=== PATIENT | female | born 1985 | race Caucasian/White ===

== ENCOUNTER 2017-08-05 12:22 | Emergency (ER) | payer OTHER ==
[2017-08-05 13:27] VITALS: BP 106/61
--- NOTE | 2017-08-05 13:57 | UC ---
Ear Complaint HPI - HPI Summary HPI Summary: Pt present to the with with progressive right ear pain, head congestion, and cough x 3 weeks. Pt denies fevers chills. Little relief with OTC meds. No cp, sob. + fatigue. No ear drainage Pt's medications reviewed this visit - History of Current Complaint Chief Complaint: UCRespiratory Stated Complaint: UPPER RESPIRATORY Time Seen by Provider: 08/05/17 13:26 Hx Obtained From: Patient Hx Last Menstrual Period: 07/27/17 ?: No Onset/Duration: Gradual Onset Severity Initially: Mild Severity Currently: Moderate - Allergies/Home Medications Allergies/Adverse Reactions: Allergies Allergy/AdvReac Type Severity Reaction Status Date / Time No Known Allergies Allergy Verified 08/05/17 13:27 PMH/Surg Hx/FS Hx/Imm Hx Previously Healthy: Yes - Surgical History Surgical History: Yes Surgery Procedure, Year, and Place: - Family History Known Family History: Negative: Cardiac Disease, Hypertension, Diabetes - Social History Occupation: Employed Full-time Lives: With Family Alcohol Use: None Substance Use Type: None Smoking Status (MU): Light Every Day Tobacco Smoker Type: Cigarettes Amount Used/How Often: 5 cigs per day Review of Systems Constitutional: Fatigue ENT: Ear Ache, Nasal Discharge Respiratory: Cough All Other Systems Reviewed And Are Negative: Yes Physical Exam Triage Information Reviewed: Yes Appearance: Well-Appearing, No Pain Distress, Well-Nourished Vital Signs: Initial Vital Signs Temp 98.7 F 08/05/17 13:22 Pulse 64 08/05/17 13:22 Resp 16 08/05/17 13:22 BP 106/61 08/05/17 13:22 Pulse Ox 100 08/05/17 13:22 Vital Signs Reviewed: Yes Eye Exam: Normal Eyes: Positive: Conjunctiva Clear ENT: Positive: Hearing grossly normal, Nasal congestion, TM red, Sinus tenderness, Uvula midline, Other - right TM + fluid, erythema, buldge turbinates inflammed and boggy + PND no exudate, no erythema uvula midline. Negative: TMs normal Neck exam: Normal Neck: Positive: Supple, Nontender, No Lymphadenopathy Respiratory Exam: Normal Respiratory: Positive: Chest non-tender, Lungs clear, Normal breath sounds, No respiratory distress Cardiovascular Exam: Normal Cardiovascular: Positive: RRR, No Murmur Abdominal Exam: Normal Abdomen Description: Positive: Nontender, No Organomegaly Bowel Sounds: Positive: Present Musculoskeletal Exam: Normal Musculoskeletal: Positive: Strength Intact Neurological Exam: Normal Psychological Exam: Normal Psychological: Positive: Normal Response To Family Skin Exam: Normal Ear Complaint Course/Dx - Course Course Of Treatment: Pt with 3 weeks head congestion, intermittent cough, and progressive right ear pain and fullness. Pt with right OM on exam and turbinate congestion. abx. flonase. motrin/apap - Differential Dx/Diagnosis Provider Diagnoses: otitis media Discharge - Discharge Plan Condition: Stable Disposition: HOME Prescriptions: Amoxicillin/Clavulanate TAB* [Augmentin TAB 875*] 875 mg PO BID #20 tab Fluticasone NASAL * [Flonase *] 2 spray BOTH NARES DAILY #1 spray Patient Education Materials: Ear Infection (ED) Forms: *Work Release Referrals: No Primary Care Phys,NOPCP [Primary Care Provider] - Additional Instructions: - Take antibiotics as prescribed until gone - Okay to alternate ibuprofen and tylenol every 3 hours as needed for pain or fever -humidify the room where you sleep - These infections are spread by oral secretions. Do not share eating or drinking utensils. Frequent hand washing is important. Clean items that may get your secretions on them such as cell phones, ipads, computer mouse, television remotes. After you have been on antibiotics for 2 days, change you pillowcase and your toothbrush. - use nasal spray as prescribed Call your doctor or return with questions or concerns
== END 2017-08-05 14:04 | disposition home or self-care (01) ==
LOC: UCCORT 12:22
DX: H66.91 Otitis media, unspecified, right ear (principal); R53.83 Other fatigue; R09.81 Nasal congestion; R05 Cough; F17.210 Nicotine dependence, cigarettes, uncomplicated
CPT/HCPCS: 99212; G0463